=== PATIENT | female | born 1950 | race Caucasian/White ===

== ENCOUNTER 2018-03-10 13:27 | Emergency (ER) | payer OTHER, MEDICARE ==
[2018-03-10] MEDS ORDERED: IPRATRPIUM/ALBUTEROL 0.5/2.5MG 3 ML NEBU. (13:37)
[2018-03-10 14:09] LABS: ADD MAN DIFF? NO
[2018-03-10 14:10] LABS: BASO # 0.1 x10^3/uL (0.0-0.2); BASO % 1 % (0-3); EOS # 0.1 x10^3/uL (0.0-0.7); EOS % 1 % (0-3); HEMATOCRIT 37.6 % (36.0-47.0); LYMPH # 2.8 x10^3/uL (1.0-4.8); LYMPH % 26 % (24-48); MEAN CORPUSCULAR HEMOGLOBIN 31 pg (25-35); MEAN CORPUSCULAR HGB CONC 35 g/dL (31-37); MEAN CORPUSCULAR VOLUME 88 fL (79-100); MONO # 0.8 x10^3/uL (0.0-1.1); MONO % 8 % (0-9); NEUT % 65 % (31-73); PLATELET COUNT 305 x10^3/uL (140-400); RED BLOOD COUNT 4.26 x10^6/uL (3.50-5.40); RED CELL DISTRIBUTION WIDTH 13.6 % (11.5-14.5); WHITE BLOOD COUNT 10.8 x10^3/uL (4.0-11.0)
[2018-03-10] MEDS: methylPREDNISolone SOD SUCC PF 125 MG/2 ML VIAL. IV (14:13)
[2018-03-10] MEDS: IPRATRPIUM/ALBUTEROL 0.5/2.5MG 3 ML NEBU. NEB (14:15)
[2018-03-10 14:29] LABS: ETHANOL < 10 mg/dL (0-10); TROPONINI < 0.017 ng/mL (0.000-0.055)
[2018-03-10 14:35] LABS: NT-PRO BNP 102 pg/mL (0-124); THYROID STIM HORMONE (TSH) 1.327 uIU/mL (0.358-3.74)
[2018-03-10 14:35] LABS: CKMB INDEX 0.4 % (0-4); CKMB MASS 1.2 ng/mL (0.0-3.6); CREATINE KINASE 276 U/L (26-192)
[2018-03-10 14:41] LABS: ANION GAP 12 (6-14); CARBON DIOXIDE 26 mmol/L (21-32); CHLORIDE 99 mmol/L (98-107); POTASSIUM 3.3 mmol/L (3.5-5.1); SODIUM 137 mmol/L (136-145)
[2018-03-10 14:54] LABS: BLOOD UREA NITROGEN 8 mg/dL (7-20); CALCIUM 8.8 mg/dL (8.5-10.1); CREATININE 0.7 mg/dL (0.6-1.0); GLUCOSE 108 mg/dL (70-99)
[2018-03-10] MEDS: ACETAMINOPHEN 500 MG TABLET PO (15:36)
[2018-03-10] MEDS: AZITHROMYCIN 250 MG TABLET. PO (15:37)
[2018-03-11 09:21] LABS: NEGATIVE OBC STREP NEG; POSITIVE OBC STREP POS
== END 2018-03-10 16:02 | disposition home or self-care (01) ==
LOC: ER 13:27
DX: J20.9 Acute bronchitis, unspecified (principal); J04.0 Acute laryngitis; F17.210 Nicotine dependence, cigarettes, uncomplicated; Z88.2 Allergy status to sulfonamides
CPT/HCPCS: 36415; 71045; 80048; 82553; 83735; 83880; 84443; 84484; 85025; 87070; 87880; 93005; 94640; 96374; 99285-25; G0480; J2930; Q0144

== ENCOUNTER 2020-10-06 11:52 | Emergency (ER) | payer MEDICARE, OTHER ==
[~2020-10-06] VITALS: Ht 162.6 cm; Wt 83.0 kg
[~2020-10-06 11:52] MED LIST: AZIT250T6 PO; BENZ100C PO; LACT1CAP12 PO; PRED50TA PO; VENTOLIN HFA18 GM INH
[2020-10-06 14:12] VITALS: BP 189/95
--- NOTE | 2020-10-06 14:52 | RAD ---
Three-view left ankle study Clinical indications: Fall and pain FINDINGS: No acute fracture or dislocation or lytic process is seen. The mortise ankle joint is intac t. IMPRESSION: No acute fracture. Electronically signed by: Juan C Camacho MD (10/06/2020 2:49 PM) [id number]
--- NOTE | 2020-10-06 15:17 | ED.ADGEN ---
Past Medical History Past Medical History: Hypertension, Other Additional Past Medical Histor: ETHAN - CPAP Past Surgical History: Cholecystectomy Smoking Status: Current Every Day Smoker Alcohol Use: None Drug Use: None General Adult EDM: Chief Complaint: ANKLE PROBLEM HPI: HPI: Patient is a 70 year old female who presents to the emergency department with complaints of lateral left ankle pain and swelling after slipping and falling while trying to get into her [place] this morning. She denies any loss of consciousness, head, neck, or back pain. Patient denies any nausea or vomiting. She currently rates the pain in her left ankle 4 out of 10 on the pain scale, the pain increases with weightbearing. Patient denies taking any medication prior to arrival. She denies any numbness, tingling, or decreased sensation of the affected extremity. Review of Systems: Review of Systems: Complete review of systems is negative unless otherwise documented in the HPI Allergies: Allergies: Allergies Coded Allergies Type Severity Reaction Last Updated Verified Sulfa (Sulfonamide Antibiotics) Allergy Intermediate 03/10/18 Yes Physical Exam: PE: Constitutional: Well developed, well nourished, no acute distress, non-toxic appearance. [] HENT: Normocephalic, atraumatic, bilateral external ears normal, nose normal. [] Eyes: PERRLA, EOMI, conjunctiva normal, no discharge. [] Neck: Normal range of motion, no stridor. [] Cardiovascular:Heart rate regular rhythm Lungs & Thorax: Respirations even and unlabored, no retractions, no respiratory distress Skin: Warm, dry, no erythema, no rash. [] Extremities: L ankle: lateral TTP without crepitus or obvious deformity, 2+ pedal pulse, No cyanosis, ROM intact, no edema. [] Neurologic: Alert and oriented X 3, no focal deficits noted. [] Psychologic: Affect normal, judgement normal, mood normal. [] Current Patient Data: Vital Signs: Vital Signs Date Time Temp Pulse Resp B/P (MAP) Pulse Ox O2 Delivery O2 Flow Rate FiO2 10/06/20 14:12 97.3 80 14 189/95 (126) 96 Room Air 97.3 EKG: EKG: [] Heart Score: Risk Factors: Risk Factors: DM, Current or recent (<one month) smoker, HTN, HLP, family history of CAD, obesity. Risk Scores: Score 0 - 3: 2.5% MACE over next 6 weeks - Discharge Home Score 4 - 6: 20.3% MACE over next 6 weeks - Admit for Clinical Observation Score 7 - 10: 72.7% MACE over next 6 weeks - Early Invasive Strategies Radiology/Procedures: Radiology/Procedures: PROCEDURE: ANKLE LEFT 3V Three-view left ankle study Clinical indications: Fall and pain FINDINGS: No acute fracture or dislocation or lytic process is seen. The mortise ankle joint is intact. IMPRESSION: No acute fracture. [] Course & Med Decision Making: Course & Med Decision Making Pertinent Labs and Imaging studies reviewed. (See chart for details) I offered to give the patient pain medication while she was in the ER also to prescribe pain medication to take at home, the patient declined any medications states that she does not like to take pills. [] Dragon Disclaimer: Dragon Disclaimer: This electronic medical record was generated, in whole or in part, using a voice recognition dictation system. Departure Departure Impression: Primary Impression: Left lateral ankle pain Additional Impression: Fall from slipping on ice Disposition: 01 DC HOME SELF CARE/HOMELESS Condition: STABLE Referrals: ABBEY LEBLANC MD (PCP) MONTSERRAT MASSEY MD Patient Instructions: Ankle Pain Additional Instructions: You can take Tylenol or ibuprofen as needed for pain. Recommend application of ice, elevation, and rest of affected extremity. Wear the splint that was placed until follow up appointment with Dr. Massey or your primary care doctor this week. Return to the ER if your symptoms worsen. Splinting Splinting : Location: L ankle Pre-Made Type: velcro (Velcro ankle splint) Pre-Proc Neuro Vasc Exam: normal Post-Proc Neuro Vasc Exam: normal, unchanged from pre-exam Problem Qualifiers Additional Impression: Fall from slipping on ice Encounter type: initial encounter Qualified Codes: W00.9XXA - Unspecified fall due to ice and snow, initial encounter TONI TERESA [employer] Oct 06, 2020 15:17
== END 2020-10-06 15:36 | disposition home or self-care (01) ==
LOC: ER 11:52
DX: M25.572 Pain in left ankle and joints of left foot (principal); I10 Essential (primary) hypertension; F17.200 Nicotine dependence, unspecified, uncomplicated; G89.11 Acute pain due to trauma; Z88.2 Allergy status to sulfonamides; W00.2XXA Other fall from one level to another due to ice and snow, initial encounter; Y93.89 Activity, other specified; Y92.89 Other specified places as the place of occurrence of the external cause; Y99.8 Other external cause status
CPT/HCPCS: 29515; 73610; 99284